=== PATIENT | male | born 1960 | race Caucasian/White ===

== ENCOUNTER 2016-04-21 18:28 | Emergency (ER) | payer BC ==
[2016-04-21 19:12] VITALS: BP 139/67
--- NOTE | 2016-04-21 20:04 | UC ---
Laceration HPI - HPI Summary HPI Summary: lacerated right hand ifth digit when he was pulling up floor boards today and his finger got caught on a nail. Injured at noon, presented at 7 pm, steadily oozing. On plavix secondary to hx of ND. States tetanus is up to date. - History Of Current Complaint Chief Complaint: UCLaceration Stated Complaint: RIGHT 5TH FINGER INJURY Time Seen by Provider: 04/21/16 19:19 Hx Obtained From: Patient, Family/Manager Pacu - here with his mary Laceration Location: Finger - right hand fifth digit Mechanism Of Injury: Sharp Trauma Onset/Duration: Sudden Onset Severity: Moderate Aggravating Factors: Position, Movement Related History: Dominant Hand Right - Allergies/Home Medications Allergies/Adverse Reactions: Allergies Allergy/AdvReac Type Severity Reaction Status Date / Time No Known Allergies Allergy Verified 04/21/16 19:12 Home Medications: Home Medications Amiodarone TAB* [Cordarone TAB*] 200 mg PO DAILY 04/21/16 [History Confirmed ] Clopidogrel TAB* [Plavix TAB*] 75 mg PO DAILY 04/21/16 [History Confirmed ] Metoprolol Tartrate TAB* [Lopressor TAB*] 50 mg PO DAILY 04/21/16 [History Confirmed 04/21/16] Pravastatin Sodium [Pravachol] 60 mg PO DAILY 04/21/16 [History Confirmed ] Telmisartan 40 mg PO DAILY 04/21/16 [History Confirmed 04/21/16] glipiZIDE TAB* [Glucotrol TAB*] 10 mg PO DAILY 04/21/16 [History Confirmed 04/21] metFORMIN* [Glucophage*] 500 mg PO BID 04/21/16 [History Confirmed 04/21/16] traZODone TAB* [Desyrel TAB*] 50 mg PO BEDTIME 04/21/16 [History Confirmed 04/21] PMH/Surg Hx/FS Hx/Imm Hx Previously Healthy: Yes Endocrine History Of: Reports: Diabetes Cardiovascular History Of: Reports: Cardiac Disorders - ND 20 years ago - Surgical History Surgical History: Yes Surgery Procedure, Year, and Place: Appy. knee - Family History Known Family History: Positive: Cardiac Disease - Social History Occupation: Disabled Lives: With Family Alcohol Use: Daily Substance Use Type: None Smoking Status (MU): Heavy Every Day Tobacco Smoker Have You Smoked in the Last Year: Yes Review of Systems Constitutional: Negative Skin: Other - finger laceration Eyes: Negative ENT: Negative Respiratory: Negative Cardiovascular: Negative Gastrointestinal: Negative Genitourinary: Negative Motor: Negative Neurovascular: Negative Musculoskeletal: Negative Neurological: Negative Psychological: Negative All Other Systems Reviewed And Are Negative: Yes Physical Exam Triage Information Reviewed: Yes Appearance: Ill-Appearing - looks chronically unwell Vital Signs: Initial Vital Signs Temp 97.0 F 04/21/16 19:08 Pulse 60 04/21/16 19:08 Resp 16 04/21/16 19:08 BP 139/67 04/21/16 19:08 Pulse Ox 98 04/21/16 19:08 Vital Signs Reviewed: Yes ENT Exam: Normal Respiratory: Positive: Lungs clear, Normal breath sounds Cardiovascular: Positive: RRR, No Murmur Musculoskeletal Exam: Normal Neurological: Positive: Alert Psychological Exam: Normal Skin Exam: Other - 1.5 cm flap laceration fifth digit palmar surface, irregular with some missing marginal dermis Laceration Repair - Laceration Repair 1 Laceration Size After Repair: Length (cm) - 1.5, Width (mm) - 0, Depth (mm) - 2 Modified For Repair: Yes - few mm of debiitated skin and fat debrided. Type Injection: Local Anesthesia Used: 2.0% Lido Cleansing Completed Via Routine Prep: Yes Irrigation With Pressure Irrigation Device: Yes Closure Material: Sutures - 3 interrupted sutures, 5-0 Closure Method: Single Layer Suture Of: Skin Suture Type: Nylon Laceration Course/Dx - Course/Dx Course Of Treatment: repair of laceration. Prophylactic antibiotic given duration of time wound open and hx of diabetes. - Differential Dx - Laceration/Wound Differental Diagnoses: Laceration Provider Diagnoses: laceration right hand fifth digit Discharge - Discharge Plan Condition: Stable Disposition: HOME Prescriptions: Cephalexin CAP* [Keflex 500 CAP*] 500 mg PO QID #20 cap Patient Education Materials: Finger Laceration (ED) Additional Instructions: your laceration was repaired. You have been prescribed cephalexin to decrease the risk of wound infection because of the duration of time the wound was open. MAKE certain that you check the date of your last tetanus booster
[2016-04-21] MEDS ORDERED: Lidocaine 2% PF * 5 ML VIAL ONE (20:08)
[2016-04-21] MEDS ORDERED: Cephalexin CAP* 500 MG PO ONE (20:34)
== END 2016-04-21 20:51 | disposition home or self-care (01) ==
LOC: UCCORT 18:28
DX: S61.216A Laceration without foreign body of right little finger without damage to nail, initial encounter (principal); W45.0XXA Nail entering through skin, initial encounter; Y93.H3 Activity, building and construction; Y92.9 Unspecified place or not applicable; E11.9 Type 2 diabetes mellitus without complications; Z79.84 Long term (current) use of oral hypoglycemic drugs; I25.2 Old myocardial infarction; Z79.01 Long term (current) use of anticoagulants; F17.210 Nicotine dependence, cigarettes, uncomplicated
CPT/HCPCS: 12001; 99202; A9270-GY; G0463

== ENCOUNTER 2016-10-23 10:02 | Emergency (ER) | payer BC ==
[2016-10-23 10:16] VITALS: BP 117/66
--- NOTE | 2016-10-23 10:19 | UC ---
Skin Complaint HPI - HPI Summary HPI Summary: Patient noticed a painful red rash on his back 4 days ago, it has developed blisters, on the left side of his back wrapping around the side of his trunk - History of Current Complaint Time Seen by Provider: 10/23/16 10:12 Stated Complaint: SKIN COMPLAINT Hx Obtained From: Patient Onset/Duration: Sudden Onset, Lasting Days Skin Exposure Onset/Duration: Days Ago Timing: Constant Onset Severity: Mild Current Severity: Moderate Location: Discrete Character: Swelling, Redness, Painful Aggravating: Touch Alleviating: Nothing - Allergy/Home Medications Allergies/Adverse Reactions: Allergies Allergy/AdvReac Type Severity Reaction Status Date / Time No Known Allergies Allergy Verified 04/21/16 19:12 Review of Systems Constitutional: Negative Skin: Rash Eyes: Negative ENT: Negative Respiratory: Negative Cardiovascular: Negative Gastrointestinal: Negative Genitourinary: Negative Motor: Negative Neurovascular: Negative Musculoskeletal: Negative Neurological: Negative Psychological: Negative All Other Systems Reviewed And Are Negative: Yes PMH/Surg Hx/FS Hx/Imm Hx Previously Healthy: Yes - Surgical History Surgical History: Yes Surgery Procedure, Year, and Place: Appy. knee - Family History Known Family History: Positive: Cardiac Disease - Social History Alcohol Use: Daily Substance Use Type: None Smoking Status (MU): Heavy Every Day Tobacco Smoker Have You Smoked in the Last Year: Yes Physical Exam Triage Information Reviewed: Yes Appearance: Well-Appearing, Well-Nourished, Pain Distress Vital Signs Reviewed: Yes Eye Exam: Normal ENT Exam: Normal Dental Exam: Normal Neck exam: Normal Respiratory Exam: Normal Respiratory: Positive: Chest non-tender, No respiratory distress, No accessory muscle use - patient is a smoker, Rhonchi, Inspiration Cardiovascular Exam: Normal Cardiovascular: Positive: RRR, No Murmur, Pulses Normal Abdominal Exam: Normal Abdomen Description: Positive: Nontender, No Organomegaly, Soft Bowel Sounds: Positive: Present Musculoskeletal Exam: Normal Neurological Exam: Normal Psychological Exam: Normal Skin: Positive: rashes - multiple areas of blisters with an erythemic base from left side of spine wrapping around the left side of abdomen Course/Dx - Course Course Of Treatment: hx obtained, exam performed ,meds reviewed, treated for shingles - Differential Diagnoses - Skin Complaint Differential Diagnoses: MRSA, Poison Trish, Poison [place], Scabies, Urticaria, Varicella Zoster - Diagnoses Provider Diagnoses: shingles Discharge - Discharge Plan Condition: Stable Disposition: HOME Prescriptions: HYDROcodone/ACETAMIN 5-325 MG* [[place] 5-325 TAB*] 1 tab PO Q6H PRN #12 tab MDD 4 tabs PRN Reason: Pain ValACYclovir (*) [Valtrex 1 GM(*)] 1 gm PO TID #21 tab Patient Education Materials: Mark (ED) Additional Instructions: 1. take the medication as prescribed. 2. Use the pain medication as needed, use ibuprofen for everyday use. 3. Follow up as needed for any worsening symtpoms
== END 2016-10-23 10:37 | disposition home or self-care (01) ==
LOC: UCCORT 10:02
DX: B02.9 Zoster without complications (principal); F17.200 Nicotine dependence, unspecified, uncomplicated
CPT/HCPCS: 99212; G0463

== ENCOUNTER 2018-07-15 10:17 | Emergency (ER) | payer SELFPAY ==
[2018-07-15] MEDS ORDERED: Albuterol/Ipratropium NEB.SOL* Albuterol 2.5 MG/Ipratropium 0.5 MG 3 ML INH ONE (11:17)
--- NOTE | 2018-07-15 11:50 | ED ---
Respiratory - HPI Summary HPI Summary: Patient is a 58 year old , who present today to the urgent care with cough productive of greenish phlegm for past 3 weeks. He had intermittent fevers at onset but has not had any fever for the past 1 week His past medical history significant for COPD and has been using his albuterol inhaler prn w/ some relief. Denies any chest pain or shortness of breath . Denies any abdominal pain , nausea or vomiting , diarrhea or constipation. He reports that he has not been on his medication for a few months because he lost his insurance and is out of his meds. He feels that he will get his insurance back next month. - History of Current Complaint Chief Complaint: UCRespiratory Stated Complaint: COUGH,FEVER,CHILLS,POOR APETITE Time Seen by Provider: 07/15/18 11:23 Hx Obtained From: Patient Pain Intensity: 0 - Allergy/Home Medications Allergies/Adverse Reactions: Allergies Allergy/AdvReac Type Severity Reaction Status Date / Time No Known Allergies Allergy Verified 07/15/18 10:59 Home Medications: Home Medications Albuterol HFA INHALER* [Ventolin HFA Inhaler*] 2 puff Q6HR PRN 07/15/18 [ History Confirmed 07/15/18] PMH/Surg Hx/FS Hx/Imm Hx Previously Healthy: Yes - [place] Endocrine/Hematology History: Reports: Hx Diabetes - TYPE 2 Cardiovascular History: Reports: Hx Cardiac Arrest - 20 years ago, Hx Hypercholesterolemia, Hx Hypertension Respiratory History: Reports: Hx Chronic Obstructive Pulmonary Disease (COPD) - Surgical History Surgery Procedure, Year, and Place: Appy. knee Infectious Disease History: Yes Infectious Disease History: Reports: Hx Shingles Denies: Traveled Outside the [place] in Last 30 Days - Family History Known Family History: Positive: Cardiac Disease - Social History Occupation: Unemployed - currently Lives: With Family Alcohol Use: Daily Alcohol Amount: 2-3 beers/night Substance Use Type: Reports: None Hx Tobacco Use: Yes Smoking Status (MU): Heavy Every Day Tobacco Smoker Type: Cigarettes Amount Used/How Often: 1 PPD Have You Smoked in the Last Year: Yes Review of Systems Positive: Fatigue Eyes: Negative ENT: Negative Negative: Sore Throat Cardiovascular: Negative Positive: Cough - productive of greenish sputum Gastrointestinal: Negative Genitourinary: Negative Musculoskeletal: Negative Skin: Negative Neurological: Negative Psychological: Normal All Other Systems Reviewed And Are Negative: No Physical Exam - Summary Physical Exam Summary: Physical Exam: Const: Appears well. No signs of apparent distress present. Alert and oriented x 3. Musculo: Walks with a normal gait. Head/Face: Atraumatic, normocephalic on inspection. Eyes: EOMI and PERRLA in both eyes. Conjunctivae clear. No discharge noted ENT: Hearing normal, TM normal appearing bilaterally, No tenderness to palpation on maxillary and frontal sinus. No pharyngeal erythema or exudates . Uvula is midline. No cervical or submandibular lymphadenopathy noted. Respiratory: Respirations are unlabored. Air entry equal bilaterally, significant rhonchi noted in bilateral lung flores. No wheezing. CVS: Regular rate and Rhythm, S1S2 normal , no murmurs identified. Extremities: Peripheral circulation is grossly normal. Pulses 2+ Abdomen : Soft non tender , nondistended , Bowel sounds present . No guarding , rebound tenderness or rigidity noted. Skin: No lesions or rash located on the upper extremities or on the lower extremities. Neuro: Cranial nerves II to XII intact, motor and sensory intact. DTR Intact bilaterally. Mood is normal. Affect is normal. Triage Information Reviewed: Yes Vital Signs On Initial Exam: Initial Vitals Temp Pulse Resp BP Pulse Ox 97.3 F 100 22 141/81 90 07/15/18 11:07 07/15/18 11:07 07/15/18 11:07 07/15/18 11:07 07/15/18 11:07 Vital Signs Reviewed: Yes Diagnostics - Vital Signs Vital Signs Temp Pulse Resp BP Pulse Ox 07/15/18 11:07 97.3 F 100 22 141/81 90 - Laboratory Lab Statement: Any lab studies that have been ordered have been reviewed, and results considered in the medical decision making process. - Radiology No standard instances Radiology Interpretation Completed By: Radiologist - Chest Xray: POSSIBLE RIGHT MIDDLE LOBE INFILTRATE. CONSIDERING THE PATIENT'S REPORTED SMOKING HISTORY, I RECOMMEND A FOLLOW-UP CHEST X-RAY AFTER AN APPROPRIATE COURSE OF THERAPY TO ASCERTAIN RESOLUTION. Disposition - Course Course Of Treatment: During the visit today, we obtained chest x-ray POSSIBLE RIGHT MIDDLE LOBE INFILTRATE. CONSIDERING THE PATIENT'S REPORTED SMOKING HISTORY,. I RECOMMEND A FOLLOW-UP CHEST X-RAY AFTER AN APPROPRIATE COURSE OF THERAPY TO ASCERTAIN. RESOLUTION. He was given a nebulizer treatment with DuoNeb and his repeat saturation was 92%. He denies feeling better and denies any shortness of breath. Plan to treat it with Z-Everett and prednisone. Since he is unemployed and out of insurance without his medications , I will put in a referral for social work consult and he was also given information on Medicaid. We discussed the findings and further plan. I will prescribe the medication to the pharmacy . Patient expressed understanding . - Diagnoses Provider Diagnoses: Pneumonia, COPD exacerbation Discharge - Sign-Out/Discharge Documenting (check all that apply): Patient Departure All imaging exams completed and their final reports reviewed: Yes - Discharge Plan Condition: Stable Disposition: HOME Prescriptions: Albuterol HFA INHALER* [Ventolin HFA Inhaler*] 1 puff INH Q4H PRN 5 Days #1 mdi PRN Reason: Shortness Of Breath Azithromyxin [place] (NF) [Z-Everett (Zithromax) 250 mg tabs #6] 2 tab PO .TODAY, THEN 1 DAILY #6 tab predniSONE [Prednisone 20 MG TAB] 60 mg PO DAILY 5 Days #15 tablet Patient Education Materials: COPD (Chronic Obstructive Pulmonary Disease) (ED) , Pneumonia (ED) Referrals: Jose Salvador MD [Primary Care Provider] - 1 Week Additional Instructions: Please start taking the medication as prescribed to the pharmacy . Put in the order for social work consult and somebody should contact you in that regards. Information about Medicaid was given to you today Patients blood pressure slightly high in Urgent care today , plan follow up with PCP for better control Return to Urgent care / ER if symptoms get worse. - Billing Disposition and Condition Condition: STABLE Disposition: Home
[2018-07-15 12:11] VITALS: BP 104/87
== END 2018-07-15 13:27 | disposition home or self-care (01) ==
LOC: UCCORT 10:17
DX: J18.9 Pneumonia, unspecified organism (principal); J44.1 Chronic obstructive pulmonary disease with (acute) exacerbation; Z86.74 Personal history of sudden cardiac arrest; I10 Essential (primary) hypertension; F17.210 Nicotine dependence, cigarettes, uncomplicated; E11.9 Type 2 diabetes mellitus without complications
CPT/HCPCS: 71046; 99212; A9270-GY; G0463

== ENCOUNTER 2020-02-04 07:29 | Observation (INO) ==
[~2020-02-04 07:29] MED LIST: Buffered Lidocaine 1% SYRIN 1 ml INTRADERM ONE; Lactated Ringers 1000 ml BAG 1,000 ML IV SCH
[2020-02-04] MEDS ORDERED: ceFAZolin 2 GM PREMIX 2 GM/50 ML BAG ONE (07:45)
[2020-02-04] MEDS ORDERED: Dexamethasone IV 4 MG/ML VIAL 1 ml VIAL ONE (08:33)
[2020-02-04] MEDS ORDERED: fentaNYL 100 mcg/2 ml 50 MCG/ML VIAL ONE (08:33)
[2020-02-04] MEDS ORDERED: Midazolam 2 mg/2 ml VIAL 1 mg/ml 2 ml VIAL (2 mg) ONE (08:33)
[2020-02-04] MEDS ORDERED: Dexmedetomidine 200 mcg/2 ml 2 ml VIAL (200 mcg) ONE (08:33)
[2020-02-04] MEDS ORDERED: ROPIVACAINE 5 MG/ML 30 ML BTL (0.5%) ONE (09:22)
[2020-02-04] MEDS ORDERED: Lidocaine 2% PF 5 ML VIAL ONE (10:14)
[2020-02-04] MEDS ORDERED: EPHEDrine (Pressors) 50 MG/ML VIAL ONE (10:22)
[2020-02-04] MEDS ORDERED: Phenylephrine 40 mcg/mL 10mL (400mcg) SYRINGE ONE (10:39)
[2020-02-04] MEDS ORDERED: fentaNYL 100 mcg/2 ml 50 MCG/ML VIAL IV PRN (11:13)
[2020-02-04] MEDS ORDERED: Naloxone 0.4 mg VIAL 0.4 mg/ml 1 ml VIAL IV PRN (11:13)
[2020-02-04] MEDS ORDERED: Ondansetron 4 mg VIAL 2 MG/ML 2 ml VIAL IV PRN ×2 (11:13→12:48)
[2020-02-04] MEDS ORDERED: Propofol 10 MG/ML 20 ML BTL ONE (11:29)
[2020-02-04] MEDS ORDERED: Magnesium Hydroxide LIQ 30 ML UDC PO PRN (12:48)
[2020-02-04] MEDS ORDERED: Ondansetron ODT 4 mg TAB 4 MG TAB PO PRN (12:48)
[2020-02-04] MEDS ORDERED: Lactulose 30 ml UDC PO PRN (12:48)
[2020-02-04] MEDS ORDERED: diPHENhydraMINE IV 50 MG/ML 1 ml VIAL (BENADRYL) IV PRN (12:48)
[2020-02-04] MEDS ORDERED: diPHENhydraMINE 25 mg TAB PO PRN (12:48)
[2020-02-04] MEDS ORDERED: oxyCODONE/Acetamin 5/325 mg TAB PO PRN (12:48)
[2020-02-04] MEDS ORDERED: Morphine 2 MG/ML SYRINGE IV PRN (12:48)
[2020-02-04] MEDS ORDERED: ceFAZolin 1 GM ADVAN 1 GM in NS 0.9% 50 ML 50 ML IVPB SCH (13:00)
[2020-02-04] MEDS: Lactated Ringers 1000 ml BAG 1,000 ML IV SCH (14:50)
[2020-02-04] MEDS ORDERED: Dextrose 50% Syringe 50 ml 25 GM/50 ML SYRINGE IV PUSH PRN (16:03)
[2020-02-04] MEDS: oxyCODONE/Acetamin 5/325 mg TAB PO PRN (18:58)
[2020-02-04] MEDS: ceFAZolin 1 GM ADVAN 1 GM in NS 0.9% 50 ML 50 ML IVPB SCH ×2 (21:47→23:13)
[2020-02-04] MEDS: Magnesium Hydroxide LIQ 30 ML UDC PO SCH (21:53)
[2020-02-05] MEDS: Lactated Ringers 1000 ml BAG 1,000 ML IV SCH (05:01)
[2020-02-05] MEDS: oxyCODONE/Acetamin 5/325 mg TAB PO PRN ×3 (05:04→14:33)
[2020-02-05] MEDS: ceFAZolin 1 GM ADVAN 1 GM in NS 0.9% 50 ML 50 ML IVPB SCH (05:49)
[2020-02-05 06:28] LABS: Hematocrit 39 % (42-52); Hemoglobin 13.3 g/dL (14.0-18.0); Mean Platelet Volume 8.4 fL (7.4-10.4); Platelet Count 191 10^3/uL (150-450)
[2020-02-05 06:47] LABS: BUN/Creatinine Ratio 19.4 (8-20); Calcium 8.8 mg/dL (8.6-10.3); EGFR African American 134.7 (>60); EGFR Non-African American 111.4 (>60); Potassium 4.6 mmol/L (3.5-5.0)
[2020-02-05] MEDS: Magnesium Hydroxide LIQ 30 ML UDC PO SCH (08:29)
[2020-02-05] MEDS ORDERED: Multivitamins/Minerals TAB PO SCH (09:00)
[2020-02-05] MEDS ORDERED: Vitamin THERAPEUTIC TAB PO SCH (09:00)
[2020-02-05 15:03] VITALS: BP 114/56
== END 2020-02-05 16:24 | disposition home or self-care (01) ==
LOC: INTOOBSV 07:29 → AA 07:29 → SSU 14:24
PROVIDERS: ADMIT Orthopaedic Surgery Adult Reconstructive Orthopaedic Surgery; ATTEND Orthopaedic Surgery Adult Reconstructive Orthopaedic Surgery